=== PATIENT | male | born 1950 | race Two or more races ===

== ENCOUNTER 2016-08-02 18:41 | Emergency (ER) | payer MEDICARE, MEDICAID ==
[~2016-08-02] VITALS: Ht 167.6 cm; Wt 71.7 kg
[~2016-08-02 18:41] MED LIST: ACYC800T PO; ALBU8.5H4 IH; ATAZ300C PO; ATOM40CA PO; ATOR10TA PO; CLOP75TA2 PO; DUTA0.5C2 PO; EMTR1TAB12 PO; GABA-536 PO; HYDR-3326 PO; IBUP-1955 PO; ISOS30TA7 PO; LOPE1LIQ89 PO; LORA2TAB95 PO; METH-406 PO; METO25TA6 PO; MONT10TA22 PO; NITR0.4T SL; RANO500T3 PO; RITO100C2 PO; SULF1TAB44 PO; TAMS0.4C34 PO; TEST200V3 IM
[2016-08-02] MEDS ORDERED: PROPOFOL 200 MG/20 ML VIAL IV ONE ×2 (21:00→21:30)
[2016-08-02] MEDS ORDERED: KETAMINE HCL (500MG/10ML) 50 MG/ML VIAL IV ONE (21:00)
[2016-08-02] MEDS ORDERED: PROPOFOL 20 ML IV ONE (21:01)
[2016-08-02] MEDS ORDERED: KETAMINE HCL (500MG/10ML) 50 MG/ML VIAL ONE (21:01)
[2016-08-02] MEDS ORDERED: IV SET PRIMARY 1 EA INFUS.SET MC ONE (21:11)
[2016-08-02] MEDS ORDERED: IV NS 0.9% 1,000 ML ONE (21:11)
[2016-08-02] MEDS ORDERED: DILTIAZEM HCL 25 MG IV ONE (21:53)
[2016-08-02] MEDS ORDERED: DILTIAZEM HCL 25 MG IV IV ONE (22:00)
[2016-08-02] MEDS ORDERED: IV NS 0.9% 500 ML BAG IV ONE (22:00)
[2016-08-05 14:01] VITALS: BP 150/94
== END 2016-08-02 22:34 | disposition home or self-care (01) ==
LOC: ER 18:46
DX: S43.005A Unspecified dislocation of left shoulder joint, initial encounter (principal); Z59.0 Homelessness; R40.4 Transient alteration of awareness; X58.XXXA Exposure to other specified factors, initial encounter; Y93.89 Activity, other specified; Y92.89 Other specified places as the place of occurrence of the external cause; Y99.8 Other external cause status
CPT/HCPCS: 36415; 70450-TC; 73020; 73030-TC; A4606; J2704; J3490; J7030; Z7610

== ENCOUNTER 2016-08-03 12:44 | Emergency (ER) | payer MEDICARE, MEDICAID ==
[~2016-08-03] VITALS: Ht 170.2 cm; Wt 65.8 kg
[2016-08-03 12:50] VITALS: BP 127/85
== END 2016-08-03 13:26 | disposition left against medical advice (07) ==
LOC: ER 12:45
DX: Z53.21 Procedure and treatment not carried out due to patient leaving prior to being seen by health care provider (principal)
CPT/HCPCS: A4606; Z7610

== ENCOUNTER 2016-11-08 15:46 | Emergency (ER) | payer MEDICARE, OTHER ==
[~2016-11-08] VITALS: Ht 167.6 cm; Wt 68.0 kg
[2016-11-08 16:08] VITALS: BP 132/69
[2016-11-08] MEDS ORDERED: IBUPROFEN 400 MG TABLET PO ONE (16:30)
[2016-11-08] MEDS ORDERED: IBUPROFEN 400 MG TABLET ONE (16:37)
== END 2016-11-08 16:46 | disposition home or self-care (01) ==
LOC: ER 15:47
DX: M25.511 Pain in right shoulder (principal); M25.512 Pain in left shoulder; G89.29 Other chronic pain; G47.419 Narcolepsy without cataplexy; B19.20 Unspecified viral hepatitis C without hepatic coma; Z88.8 Allergy status to other drugs, medicaments and biological substances
CPT/HCPCS: A4606; Z7610

== ENCOUNTER 2016-11-15 12:40 | Emergency (ER) | payer MEDICARE, OTHER ==
[~2016-11-15] VITALS: Ht 167.6 cm; Wt 68.0 kg
[2016-11-15 12:41] VITALS: BP 149/98
[2016-11-15] MEDS ORDERED: ACETAMINOPHEN ES 500 MG TABLET PO ONE (13:30)
[2016-11-15] MEDS ORDERED: ACETAMINOPHEN ES 500 MG TABLET ONE (13:56)
== END 2016-11-15 14:24 | disposition home or self-care (01) ==
LOC: ER 12:42
DX: M54.5 Low back pain (principal); G89.29 Other chronic pain; Z76.5 Malingerer [conscious simulation]; G47.419 Narcolepsy without cataplexy; B19.20 Unspecified viral hepatitis C without hepatic coma; F17.200 Nicotine dependence, unspecified, uncomplicated; Z88.8 Allergy status to other drugs, medicaments and biological substances
CPT/HCPCS: A4606; Z7610

== ENCOUNTER 2016-11-30 14:48 | Emergency (ER) | payer MEDICARE, OTHER ==
[~2016-11-30] VITALS: Ht 167.6 cm; Wt 68.0 kg
[2016-11-30 15:02] VITALS: BP 125/80
== END 2016-11-30 15:13 | disposition home or self-care (01) ==
LOC: ER 14:51
DX: M25.521 Pain in right elbow (principal); Z76.5 Malingerer [conscious simulation]; Z59.0 Homelessness; B19.20 Unspecified viral hepatitis C without hepatic coma; G89.29 Other chronic pain; M54.9 Dorsalgia, unspecified; G47.419 Narcolepsy without cataplexy; Z88.8 Allergy status to other drugs, medicaments and biological substances; F17.200 Nicotine dependence, unspecified, uncomplicated; F10.10 Alcohol abuse, uncomplicated
CPT/HCPCS: 99281; A4606; Z7502; Z7610

== ENCOUNTER 2017-01-06 20:35 | Emergency (ER) | payer MEDICARE, OTHER ==
[~2017-01-06] VITALS: Ht 167.6 cm; Wt 68.0 kg
--- NOTE | 2017-01-06 20:45 | NUR ---
PT BIB SELF C/O COUGH WITH "GREENISH" SPUTUM AND "SHORTNESS OF BREATH ON AND OFF TODAY". RESP APPEARS EVEN UNLABORED. VSS ON ROOM AIR. SKIN WARM NONDIAPHORETIC. AMBULATORY WITH STEADY GAIT. NAD NOTED. IN ER BED 15.
[2017-01-06] MEDS ORDERED: ALBUTEROL FS 2.5 MG/3 ML VIAL.NEB NEB ONE (21:00)
[2017-01-06] MEDS ORDERED: ALBUTEROL SULFATE 8 GM HFA.AER.AD IH ONE (21:00)
[2017-01-06] MEDS ORDERED: ALBUTEROL FS 2.5 MG/3 ML VIAL.NEB ONE (21:12)
--- NOTE | 2017-01-06 21:51 | NUR ---
Patient discharged to home in stable condition. Written and verbal after care instructions given. Patient verbalizes understanding of instruction. AMBULATORY WITH STEADY GAIT. NAD NOTED.
[2017-01-06 21:52] VITALS: BP 125/77
== END 2017-01-06 21:54 | disposition home or self-care (01) ==
LOC: ER 20:40
DX: J45.909 Unspecified asthma, uncomplicated (principal); F32.9 Major depressive disorder, single episode, unspecified; B19.20 Unspecified viral hepatitis C without hepatic coma; G47.419 Narcolepsy without cataplexy; I10 Essential (primary) hypertension; Z88.8 Allergy status to other drugs, medicaments and biological substances; Z59.0 Homelessness
CPT/HCPCS: A4606; Z7610

== ENCOUNTER 2017-08-24 04:14 | Inpatient (IN) | payer MEDICARE ==
[~2017-08-24] VITALS: Ht 172.7 cm; Wt 86.2 kg
[~2017-08-24 04:14] MED LIST changes: +CLOP75TA15 PO; -CLOP75TA2 PO; -HYDR-3326 PO; +HYDR-3974 PO; +LOPE1LIQ PO; -LOPE1LIQ89 PO
[2017-08-24] MEDS ORDERED: IV NS 0.9% 1,000 ML BAG IV ONE ×2 (05:00→07:30)
[2017-08-24] MEDS ORDERED: ONDANSETRON HCL/PF 4 MG/2 ML VIAL IVP ONE (05:00)
[2017-08-24] MEDS ORDERED: ONDANSETRON HCL/PF 4 MG/2 ML VIAL ONE (05:09)
[2017-08-24 05:51] LABS: HEMATOCRIT 38 % (39-51); HEMOGLOBIN 12.8 g/dL (13.5-17.5); MEAN CORPUSCULAR HEMOGLOBIN 29 PG (26.0-33.0); MEAN CORPUSCULAR HGB CONC 34 g/dl (31.0-36.0); MEAN CORPUSCULAR VOLUME 87 fL (80-96); PLATELET COUNT (AUTO) 104 /CMM (150-450); RDW COEFFICIENT OF VARIATION 15.6 (11.5-15.0); RED BLOOD CELL COUNT(AUTO) 4.37 MIL/uL (4.5-6.0); WHITE BLOOD COUNT (AUTO) 8.1 K/uL (4.3-11.0)
[2017-08-24 06:01] LABS: CALCIUM, SERUM 8.5 mg/dL (8.5-10.1); CARBON DIOXIDE 23 mmol/L (21-32); CHLORIDE 107 mmol/L (98-107); CREATININE 0.7 mg/dL (0.6-1.3); GLUCOSE 78 mg/dL (74-106); POTASSIUM 5.2 mmol/L (3.5-5.1); SODIUM SERUM 141 mmol/L (136-145); UREA NITROGEN, BLOOD 34 mg/dL (7-18)
[2017-08-24 06:16] LABS: ALANINE AMINOTRANSFERASE 106 U/L (12-78); ALBUMIN 3.3 g/dL (3.4-5.0); ALCOHOL, BLOOD < 3 mg/dL (0-0); ALKALINE PHOSPHATASE 108 U/L (46-116); ASPARTATE AMINOTRANSFERASE 200 U/L (15-37); BILIRUBIN,DIRECT 0.1 mg/dL (0.0-0.2); BILIRUBIN,TOTAL 0.9 mg/dL (0.2-1.0); SALICYLATE 3.1 mg/dL (2.8-20.0); TOTAL PROTEIN, SERUM 7.8 g/dL (6.4-8.2)
[2017-08-24 06:17] LABS: ACETAMINOPHEN 0 ug/ml (10-30); THYROID STIMULATING HORMONE 1.692 uIU/mL (0.358-3.74)
[2017-08-24] MEDS ORDERED: NALOXONE HCL 0.4 MG/ML AMPUL ONE (08:39)
[2017-08-24] MEDS ORDERED: NALOXONE HCL 0.4 MG/ML AMPUL IV ONE (09:00)
[2017-08-24 09:24] VITALS: BP 134/85
[2017-08-24 09:30] VITALS: BP 134/85
[2017-08-24] MEDS ORDERED: FAMO20TA8 PO (09:33)
[2017-08-24] MEDS ORDERED: ATOM60CA PO (09:33)
[2017-08-24] MEDS ORDERED: EMTR1TAB12 PO (09:33)
[2017-08-24] MEDS ORDERED: VENL75TA4 PO (09:33)
[2017-08-24] MEDS ORDERED: LORA1TAB PO (09:33)
[2017-08-24 10:47] LABS: LYMPHOCYTES % (MANUAL) 28 % (16-48); MONOCYTES % (MANUAL) 2 % (0-11.0); NEUTROPHILS % (MANUAL) 70 (42-76)
[2017-08-24] MEDS ORDERED: LORAZEPAM INJ 2 MG/ML VIAL IV PRN (11:00)
[2017-08-24 12:00] VITALS: BP_SYST 120; BP_DIAS 71; BP_DIAS 85
[2017-08-24] MEDS: FOLIC ACID 1 MG TABLET PO SCH (12:21)
[2017-08-24] MEDS: THIAMINE HCL 100 MG TABLET PO SCH (12:21)
[2017-08-24 16:00] VITALS: BP 127/78
[2017-08-24] MEDS ORDERED: LORAZEPAM 1 MG TABLET PO PRN (18:00)
[2017-08-24] MEDS: ACYCLOVIR 800 MG TABLET PO SCH (19:04)
[2017-08-24] MEDS: RITONAVIR 100 MG CAPSULE PO SCH (19:04)
[2017-08-24] MEDS: ATAZANAVIR SULFATE 300 MG CAPSULE PO SCH (19:05)
[2017-08-24 20:00] VITALS: BP 121/66
[2017-08-24] MEDS ORDERED: ACETAMINOPHEN 325 MG TABLET PO ONE (21:30)
[2017-08-24] MEDS ORDERED: LIDOCAINE 5% (PATCH) 1 EA PATCH TP SCH (21:30)
[2017-08-25 08:00] VITALS: BP 119/68
[2017-08-25] MEDS ORDERED: CLOPIDOGREL BISULFATE 75 MG TABLET PO SCH (09:00)
[2017-08-25] MEDS ORDERED: ISOSORBIDE MONONITRATE (30MG) 30 MG TAB.SR.24H PO SCH (09:00)
[2017-08-25] MEDS: FOLIC ACID 1 MG TABLET PO SCH (09:00)
[2017-08-25] MEDS: THIAMINE HCL 100 MG TABLET PO SCH (09:00)
[2017-08-25] MEDS: ACYCLOVIR 800 MG TABLET PO SCH (09:00)
[2017-08-25] MEDS ORDERED: FAMOTIDINE (20 MG) 20 MG TABLET PO SCH (09:00)
[2017-08-25] MEDS: RITONAVIR 100 MG CAPSULE PO SCH (09:00)
[2017-08-25] MEDS: ATAZANAVIR SULFATE 300 MG CAPSULE PO SCH (09:00)
[2017-08-25] MEDS ORDERED: ATOMOXETINE HCL 60 MG PO SCH (09:00)
[2017-08-25] MEDS ORDERED: VENLAFAXINE XR 75 MG CAP.SR.24H PO SCH (09:00)
[2017-08-25] MEDS ORDERED: EMTRICITABINE/TENOFOVIR 1 TAB PO SCH ×2 (09:00)
== END 2017-08-25 10:00 | disposition home or self-care (01) | DRG 896 ==
LOC: ER 04:15 → TELE 09:06 → MED 08-25 09:28
PROVIDERS: ADMIT Internal Medicine; ATTEND Internal Medicine
DX: F10.229 Alcohol dependence with intoxication, unspecified (principal); G92 Toxic encephalopathy; E86.0 Dehydration; I10 Essential (primary) hypertension; J45.909 Unspecified asthma, uncomplicated; Z59.0 Homelessness; Z82.49 Family history of ischemic heart disease and other diseases of the circulatory system; Z79.899 Other long term (current) drug therapy; G47.419 Narcolepsy without cataplexy; G89.29 Other chronic pain; F41.9 Anxiety disorder, unspecified; F32.9 Major depressive disorder, single episode, unspecified; Z76.5 Malingerer [conscious simulation]; Z88.8 Allergy status to other drugs, medicaments and biological substances; I70.0 Atherosclerosis of aorta; M51.36 Other intervertebral disc degeneration, lumbar region; F17.200 Nicotine dependence, unspecified, uncomplicated
CPT/HCPCS: 36415; 70450-TC; 71045-TC; 72125-TC; 72131-TC; 80048-TC; 80076-TC; 80305; 84443-TC; 85025-TC; 87081-TC; A4606; G0480; J2310; J2405; J7030; L0172; Z7610

== ENCOUNTER 2017-09-06 19:17 | Emergency (ER) | payer MEDICARE ==
[~2017-09-06] VITALS: Ht 175.3 cm; Wt 76.2 kg
[~2017-09-06 19:17] MED LIST changes: -ALBU8.5H4 IH; -ATOM40CA PO; +ATOM60CA PO; -DUTA0.5C2 PO; +FAMO20TA8 PO; -GABA-536 PO; -IBUP-1955 PO; -LOPE1LIQ PO; +LORA1TAB PO; -LORA2TAB95 PO; -METH-406 PO; -METO25TA6 PO; -MONT10TA22 PO; -NITR0.4T SL; -RANO500T3 PO; -SULF1TAB44 PO; -TAMS0.4C34 PO; -TEST200V3 IM; +VENL75TA4 PO
--- NOTE | 2017-09-06 19:20 | NUR ---
67 yo male bb ra from [facility] c/o chest pain. patient assisted to er bed, skin warm and dry, resp even and unlabored. awaiting orders from provider, will continue to monitor
--- NOTE | 2017-09-06 19:59 | NUR ---
target aircraft technician at bed side for chest x ray
[2017-09-06 20:02] LABS: CALCIUM, SERUM 7.9 mg/dL (8.5-10.1); CREATININE 0.7 mg/dL (0.6-1.3); POTASSIUM 3.2 mmol/L (3.5-5.1)
[2017-09-06 20:05] LABS: INR 1.04 (0.85-1.15)
[2017-09-06 20:10] LABS: TROPONIN I 0.02 ng/mL (0.00-0.056)
[2017-09-06 20:50] LABS: HEMATOCRIT 32 % (39-51); HEMOGLOBIN 10.7 g/dL (13.5-17.5); MEAN CORPUSCULAR HEMOGLOBIN 29 PG (26.0-33.0); MEAN CORPUSCULAR HGB CONC 34 g/dl (31.0-36.0); MEAN CORPUSCULAR VOLUME 86 fL (80-96); PLATELET COUNT (AUTO) 194 /CMM (150-450); RDW COEFFICIENT OF VARIATION 17.3 (11.5-15.0); RED BLOOD CELL COUNT(AUTO) 3.65 MIL/uL (4.5-6.0); WHITE BLOOD COUNT (AUTO) 5.3 K/uL (4.3-11.0)
[2017-09-06 21:00] VITALS: BP 131/78
--- NOTE | 2017-09-06 21:00 | NUR ---
Patient discharged to home in stable condition. Written and verbal after care instructions given. Patient verbalizes understanding of instruction. pt ambulatory with a steady gait VITAL SIGNS WITHIN NORMAL LIMITS.
[2017-09-06 21:16] LABS: LYMPHOCYTES % (MANUAL) 19 % (16-48); MONOCYTES % (MANUAL) 11 % (0-11.0); NEUTROPHILS % (MANUAL) 70 (42-76)
== END 2017-09-06 21:01 | disposition home or self-care (01) ==
LOC: ER 19:19
DX: R07.9 Chest pain, unspecified (principal); B19.20 Unspecified viral hepatitis C without hepatic coma; G47.419 Narcolepsy without cataplexy; I10 Essential (primary) hypertension; F17.200 Nicotine dependence, unspecified, uncomplicated; G89.29 Other chronic pain; F10.10 Alcohol abuse, uncomplicated; Z88.8 Allergy status to other drugs, medicaments and biological substances
CPT/HCPCS: 36415; 71045-TC; 80048-TC; 84484-TC; 85025-TC; 85730-TC; A4606; Z7610

== ENCOUNTER 2017-09-18 21:26 | Inpatient (IN) | payer MEDICARE ==
[~2017-09-18] VITALS: Ht 170.2 cm; Wt 72.6 kg
[2017-09-18] MEDS ORDERED: ASPIRIN 81 MG TAB.CHEW PO ONE (21:30)
--- NOTE | 2017-09-18 21:30 | NUR ---
67 YO MALE BB RA FROM [facility] C/O CP 03/21, SUBSTERNAL NON RADIAITNG X 1 DAY. PATIENT AMBULATED TO ER BED, SKIN WARM AND DRY, RESP EVEN AND UNLABORED. 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 AWAITING ORDERS FROM PROVIDER, WILL CONTINUE TO MONITOR
[2017-09-18] MEDS ORDERED: ASPIRIN 81 MG TAB.CHEW ONE (21:43)
--- NOTE | 2017-09-18 22:34 | NUR ---
PATIENT RESTING IN ER BED
[2017-09-18] MEDS ORDERED: HYDROCODONE/APAP 10/325MG 1 EA TABLET ONE (22:54)
[2017-09-18] MEDS ORDERED: LEVOFLOXACIN 750 MG /D5W 150ML 150 ML IV ONE (22:54)
[2017-09-18] MEDS ORDERED: HYDROCODONE/APAP 10/325MG 1 EA TABLET PO ONE (23:00)
[2017-09-18] MEDS ORDERED: LEVOFLOXACIN 750 MG /D5W 150ML 750 MG in PREMIX 1 EA IV SCH (23:00)
[2017-09-18 23:05] LABS: EOSINOPHILS # (AUTO) 0.1 /CMM (0.0-0.7); EOSINOPHILS % (AUTO) 1.5 % (0.0-6.0); HEMATOCRIT 37 % (39-51); HEMOGLOBIN 11.8 g/dL (13.5-17.5); LYMPHOCYTES # (AUTO) 2.3 /CMM (0.8-4.8); LYMPHOCYTES % (AUTO) 25.7 % (20.0-44.0); MEAN CORPUSCULAR HEMOGLOBIN 28 PG (26.0-33.0); MEAN CORPUSCULAR HGB CONC 32 g/dl (31.0-36.0); MEAN CORPUSCULAR VOLUME 87 fL (80-96); MONOCYTES # (AUTO) 0.8 /CMM (0.1-1.30); MONOCYTES % (AUTO) 9.6 % (2.0-12.0); NEUTROPHILS # (AUTO) 5.6 /CMM (1.8-8.9); NEUTROPHILS % (AUTO) 63.2 % (43.0-81.0); PLATELET COUNT (AUTO) 253 /CMM (150-450); RDW COEFFICIENT OF VARIATION 19.5 (11.5-15.0); RED BLOOD CELL COUNT(AUTO) 4.28 MIL/uL (4.5-6.0); WHITE BLOOD COUNT (AUTO) 8.8 K/uL (4.3-11.0)
[2017-09-18 23:16] LABS: INR 1.06 (0.87-1.13)
--- NOTE | 2017-09-18 23:29 | NUR ---
SARAI LUGO TOOK REPORT FOR KAVITHA
[2017-09-19] MEDS ORDERED: ONDANSETRON HCL/PF 4 MG/2 ML VIAL IVP PRN (00:30)
[2017-09-19] MEDS ORDERED: Z GUARD REMEDY 2 OZ OINT TP PRN (00:30)
[2017-09-19] MEDS ORDERED: MAGNESIUM HYDROXIDE 30 ML UDC PO PRN (00:30)
[2017-09-19] MEDS ORDERED: MAG HYDROX/AL HYDROX/SIMETH 30 ML UDC PO PRN (00:30)
[2017-09-19] MEDS ORDERED: methylPREDNISolone SOD SUCC 125 MG/2ML VIAL IV ONE ×2 (00:30→04:00)
[2017-09-19 00:39] LABS: CALCIUM, SERUM 7.9 mg/dL (8.5-10.1); CARBON DIOXIDE 21 mmol/L (21-32); CHLORIDE 103 mmol/L (98-107); CREATININE 0.8 mg/dL (0.6-1.3); GLUCOSE 121 mg/dL (74-106); POTASSIUM 4.6 mmol/L (3.5-5.1); SODIUM SERUM 135 mmol/L (136-145); UREA NITROGEN, BLOOD 33 mg/dL (7-18)
[2017-09-19 00:43] LABS: TROPONIN I < 0.017 ng/mL (0.00-0.056)
[2017-09-19 00:44] LABS: ALANINE AMINOTRANSFERASE 51 U/L (12-78); ALBUMIN 2.3 g/dL (3.4-5.0); ALKALINE PHOSPHATASE 93 U/L (46-116); ASPARTATE AMINOTRANSFERASE 29 U/L (15-37); BILIRUBIN,DIRECT 0.1 mg/dL (0.0-0.2); BILIRUBIN,TOTAL 0.3 mg/dL (0.2-1.0); TOTAL PROTEIN, SERUM 6.5 g/dL (6.4-8.2)
[2017-09-19 01:00] VITALS: BP 117/73
--- NOTE | 2017-09-19 01:00 | NUR ---
MS/RN NOTES RECEIVED PATIENT FROM ER, ARRIVED ON A W/C, ABLE TO TRANSFER SELF TO BED, AMBULATORY, ADMITED WITH DX OF PNA IN CHEST XRAY FINDING, HOMELESS, WITH HEP C, HIV,CHRONIC BACK PAIN,HX OF STENT, DEPPRESSION, HTN. OBSERVED STOOL SOFT, USES URINAL. BELONGINGS CHECK, PROVIDED ROOM ORIENTATION PROVIDED. PHOTO OF WOUND , LEFT KNEE, RIGHT KNEE AND LEFT BUTTOCKS,WOUND CONSULT TO ORDER.WILL MONITOR, PROVIDE FLUIDS AND SNACKS, DIET REGULAR., CALL LIGHTS WITHIN REACH, NON SKID SOCKS PROVIDED.
[2017-09-19 01:30] VITALS: BP 117/73
[2017-09-19 01:32] VITALS: BP 117/73
--- NOTE | 2017-09-19 04:03 | NUR ---
MS/RN NOTES PHARMACY WAS CONTACTED REGARDING ORDER OF SOLUMEDROL, ASSISTED FOR AVAILABILITY AT 0345, SUPPOSEDLY GIVEN BY 0035 ONCE BUT PATIETN ARRIVED AT 0100. MEDICATION.
[2017-09-19] MEDS: HYDROCODONE/APAP 5/325MG 1 EACH TABLET PO PRN ×4 (05:15→19:45)
--- NOTE | 2017-09-19 06:33 | NUR ---
MS/RN CLOSING NOTES PATIENT IN BED, HOB ELEVATED, ABLE TO VERBALIZE NEEDS, PAIN MEDICATION GIVEN IN AM REPORTED PAIN IN SPINE, ALERT, ORIENTED X3,SKIN WARM TO TOUCH, BED IN LOCK POSITON, CALL LIGHTS WITHIN REACH. OFFERED FLUIDS. BATHROOM PRIVELEGE. WILL ENDORSE TO AM RN FOR KAVITHA.
--- NOTE | 2017-09-19 07:32 | NUR ---
MS RN OPENING NOTES RECEIVED PATIENT IN STABLE CONDITION. IN NO APPARENT DISTRESS. BEDSIDE RAILS ARE UPX2. BED IS LOCKED AND LOWERED. CALL LIGHT IS WITHIN REACH. IV LINE IS INTACT AND PATENT. WILL CONTINUE TO MONITOR.
[2017-09-19 08:00] VITALS: BP 144/87
[2017-09-19] MEDS: methylPREDNISolone SOD SUCC 125 MG/2ML VIAL IV SCH ×4 (09:19→21:19)
[2017-09-19] MEDS: ALBUTEROL FS 2.5 MG/0.5 ML VIAL.NEB NEB PRN ×2 (13:23→22:34)
[2017-09-19] MEDS: NICOTINE PATCH (14MG) 14 MG PATCH.TD24 TD SCH (15:22)
[2017-09-19 16:00] VITALS: BP 155/78
--- NOTE | 2017-09-19 18:30 | NUR ---
MS RN CLOSING NOTES PATIENT IS ALERT AND ORIENTED X4. BED IS LOCKED AND LOWERED. CALL LIGHT IS WITHIN REACH. IV LINE IS PATENT AND INTACT. BEDSIDE RAILS ARE UPX2. WILL ENDORSE CARE TO STORE LOSS PREVENTION MANAGER NURSE FOR KAVITHA.
--- NOTE | 2017-09-19 19:30 | NUR ---
MS RN NOTE RECEIVED PATIENT AWAKE AND ALERT IN BED. VERY PLEASANT. ABLE TO MAKE NEEDS KNOWN. DENIES ANY PAIN AT THIS TIME. IV SITE INTACT, WITH NO REDNESS OR INFILTRATION NOTED. BED LOCKED AND IN LOWEST POSITION. SIDE RAILS UP, CALL LIGHT WITHIN REACH. WILL CONTINUE TO MONITOR.
[2017-09-19] MEDS: ZOLPIDEM TARTRATE 5 MG TABLET PO PRN (21:19)
[2017-09-19 22:00] VITALS: BP 155/78
[2017-09-19] MEDS: LORAZEPAM 1 MG TABLET PO PRN (23:31)
[2017-09-20] MEDS: LEVOFLOXACIN 500 MG /D5W 100ML 500 MG in PREMIX 1 EA IV SCH (01:59)
[2017-09-20] MEDS: HYDROCODONE/APAP 5/325MG 1 EACH TABLET PO PRN ×4 (01:59→18:38)
--- NOTE | 2017-09-20 06:28 | NUR ---
MS RN NOTE ALL NEEDS MET AND ATTENDED TO. WILL ENDORSE TO DAY SHIFT FOR KAVITHA.
[2017-09-20 06:35] LABS: HEMATOCRIT 31 % (39-51); HEMOGLOBIN 10.2 g/dL (13.5-17.5); MEAN CORPUSCULAR HEMOGLOBIN 28 PG (26.0-33.0); MEAN CORPUSCULAR HGB CONC 33 g/dl (31.0-36.0); MEAN CORPUSCULAR VOLUME 86 fL (80-96); PLATELET COUNT (AUTO) 252 /CMM (150-450); RDW COEFFICIENT OF VARIATION 18.4 (11.5-15.0)
[2017-09-20 06:36] LABS: CALCIUM, SERUM 8.2 mg/dL (8.5-10.1); CREATININE 0.6 mg/dL (0.6-1.3); MAGNESIUM 2.3 mg/dL (1.8-2.4); PHOSPHORUS 3.5 mg/dL (2.5-4.9); POTASSIUM 4.5 mmol/L (3.5-5.1)
[2017-09-20 07:27] LABS: WHITE BLOOD COUNT (AUTO) 9.9 K/uL (4.3-11.0)
[2017-09-20 07:28] LABS: RED BLOOD CELL COUNT(AUTO) 3.58 MIL/uL (4.5-6.0)
--- NOTE | 2017-09-20 07:30 | NUR ---
PT RECEIVED RESTING COMFORTABLY IN BED. NO S/S OR C/O PAIN OR DISTRESS NOTED. SIDE RAILS UP X2. CALL LIGHT LEFT WITHIN REACH. WILL CONTINUE PLAN OF CARE.
[2017-09-20 08:00] VITALS: BP 132/76
[2017-09-20] MEDS: NICOTINE PATCH (14MG) 14 MG PATCH.TD24 TD SCH (08:16)
[2017-09-20 10:05] LABS: BAND % (MANUAL) 3 % (0.0-5.0); LYMPHOCYTES % (MANUAL) 5 % (16-48); MONOCYTES % (MANUAL) 2 % (0-11.0); NEUTROPHILS % (MANUAL) 90 (42-76)
[2017-09-20] MEDS ORDERED: SULF1TAB48 PO (10:40)
[2017-09-20] MEDS ORDERED: DUTA0.5C PO (10:40)
[2017-09-20] MEDS ORDERED: ASPI-1169 PO (10:40)
[2017-09-20] MEDS ORDERED: METH-406 PO (10:40)
[2017-09-20] MEDS ORDERED: LOPE2CAP40 PO (10:40)
[2017-09-20] MEDS ORDERED: GABA400C PO (10:40)
[2017-09-20] MEDS ORDERED: METO-356 PO (10:40)
[2017-09-20] MEDS ORDERED: TEST200V3 IM (10:40)
[2017-09-20] MEDS: LORAZEPAM 1 MG TABLET PO PRN ×2 (10:43→17:08)
[2017-09-20] MEDS ORDERED: ACAM333T8 PO (10:49)
[2017-09-20] MEDS: methylPREDNISolone SOD SUCC 125 MG/2ML VIAL IV SCH ×4 (11:38→21:31)
[2017-09-20] MEDS ORDERED: EMTRICITABINE/TENOFOVIR 1 TAB PO SCH (14:30)
[2017-09-20] MEDS: ALBUTEROL FS 2.5 MG/0.5 ML VIAL.NEB NEB PRN ×2 (14:41→20:00)
--- NOTE | 2017-09-20 15:46 | NUR ---
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 Fitzpatrick in regards to homelessness. Pt is a 67 year old male who was admitted to [facility] for shortness of breath, wheezing and cough with green sputum worsening over the past week. Pt was alert and oriented x4. Pt has been residing at [facility] ([address] [place] [address]) prior to hospitalization. The pt.s emergency contact is the pt.s friend Fer Pacheco ([phone]). Patient denies use of drugs and cigarettes. Pt reports that he stopped drinking a week ago, but would have 1/6th of a vodka bottle a day. Pt states that he has been in treatment before at [facility] for alcohol abuse but cant remember exactly when. Pt reports that he wants outpatient referrals for substance abuse. Pt reports having a psychiatric disorder (Depression) and seeing a psychiatrist (Dr. Galindo Garcia-[address], [place] [address]; ). Pt reports that he has been hospitalized at [facility] for a month. Pt denies any current suicidal or homicidal ideation. Pt denies any auditory and visual hallucinations. SW provided pt. with Substance Abuse Referrals to [facility] ([address], [place] [address]; [phone]), [facility] ([address], [place] [address]; ), and [facility] ( [place] [address]; ). Pt reported that he wanted to be placed in a [facility] Facility. SW spoke to Case Management in regards to finding a SNF placement for pt. SW spoke with BRITTNEY Navarro to inform him of resources provided and need for a SNF. Plan: Case Management will find appropriate SNF for pt. before discharge.
[2017-09-20 16:00] VITALS: BP 130/85
[2017-09-20] MEDS: EMTRICITABINE/TENOFOVIR 1 TAB PO SCH (16:44)
[2017-09-20] MEDS: DUTASTERIDE (0.5 MG) 0.5 MG CAPSULE PO SCH (16:44)
[2017-09-20] MEDS: SULFAMETH/TRIMETH 800/160 MG 1 UDTAB TABLET PO SCH (16:44)
[2017-09-20] MEDS: ACYCLOVIR 800 MG TABLET PO SCH (16:44)
[2017-09-20] MEDS: GABAPENTIN 400 MG CAPSULE PO SCH ×2 (16:45→17:00)
[2017-09-20] MEDS: CLOPIDOGREL BISULFATE 75 MG TABLET PO SCH (16:45)
[2017-09-20] MEDS: ATORVASTATIN 10 MG TABLET PO SCH (16:45)
[2017-09-20] MEDS: METOPROLOL SUCCINATE 25 MG TAB.SR.24H PO SCH (16:45)
[2017-09-20] MEDS: ASPIRIN 81 MG TAB.CHEW PO SCH (16:45)
[2017-09-20] MEDS: FAMOTIDINE (20 MG) 20 MG TABLET PO SCH ×2 (16:45→17:00)
[2017-09-20] MEDS: METHOCARBAMOL (750MG) 750 MG TABLET PO SCH ×3 (16:46→21:31)
[2017-09-20] MEDS: ISOSORBIDE MONONITRATE (30MG) 30 MG TAB.SR.24H PO SCH (16:46)
[2017-09-20] MEDS: RITONAVIR 100 MG CAPSULE PO SCH (17:08)
[2017-09-20] MEDS: ATAZANAVIR SULFATE 300 MG CAPSULE PO SCH (17:08)
[2017-09-20] MEDS: DAKINS QUARTER STRENGTH (0.125%) 480 ML BOTTLE TOP SCH (17:09)
[2017-09-20] MEDS: NEOMY SULF/BACITRAC ZN/POLY 15 GM TUBE TP SCH (17:10)
--- NOTE | 2017-09-20 17:16 | NUR ---
Spoke with patient, he is alert and very pleasant. Stated prior to admit, he resides at a board and Care in [facility]. Patient forgot the name of the B&C, stated he had paid the September rent. Patient is ambulatory and independent with adl's. His support system are his friends and the [facility] [phone]. Per patient,he is ok with short term SNF for wound care and eventually will go back to his board and care after SNF. Patient was referred to [facility] [phone] by counter caser Anne. Bryce Newsome at [facility]- patient has been accepted. Addendum: 09/20/17 at 1717 by SCOTT ROWLEY RN Amended: Links added.
--- NOTE | 2017-09-20 17:44 | NUR ---
Patient called home health care social worker in regards to filling out [employer] application. ornamental ironworker called and left a message for financial counselor Fatuma ([phone]) in regards to pt's request.
[2017-09-20] MEDS: LOPERAMIDE HCL (2 MG CAP) 2 MG CAPSULE PO PRN (18:32)
--- NOTE | 2017-09-20 18:54 | NUR ---
CHANGE OF SHIFT REPORT PT RESTING COMFORTABLY IN BED. NO S/S OR C/O PAIN OR DISTRESS NOTED. SIDE RAILS UP X2, CALL LIGHT LEFT WITHIN REACH. PT KEPT CLEAN, DRY, AND COMFORTABLE. NO SIGNIFICANT CHANGES SINCE PREVIOUS SHIFT. WILL GIVE REPORT TO VANESSA LUGO.
[2017-09-20 20:00] VITALS: BP 124/84
[2017-09-20] MEDS: ACETAMINOPHEN 325 MG TABLET PO PRN (21:31)
[2017-09-20] MEDS: ZOLPIDEM TARTRATE 5 MG TABLET PO PRN (21:31)
[2017-09-20 22:00] VITALS: BP 124/84
[2017-09-21] MEDS: LEVOFLOXACIN 500 MG /D5W 100ML 500 MG in PREMIX 1 EA IV SCH (01:08)
[2017-09-21] MEDS: ALBUTEROL FS 2.5 MG/0.5 ML VIAL.NEB NEB PRN (01:28)
[2017-09-21] MEDS: HYDROCODONE/APAP 5/325MG 1 EACH TABLET PO PRN ×2 (01:40→21:53)
[2017-09-21] MEDS: LORAZEPAM 1 MG TABLET PO PRN ×3 (01:59→20:37)
[2017-09-21] MEDS ORDERED: ALBUTEROL FS 2.5 MG/0.5 ML VIAL.NEB NEB ONE (06:00)
--- NOTE | 2017-09-21 06:22 | NUR ---
MS RN NOTE PATIENT STABLE. ALL NEEDS MET AND ATTENDED TO. WILL ENDORSE TO DAY SHIFT FOR KAVITHA.
[2017-09-21] MEDS: HYDROCODONE/APAP 5/325MG 1 EACH TABLET PO SCH ×3 (07:54→18:02)
--- NOTE | 2017-09-21 07:59 | NUR ---
WOUND CARE CONSULT WOUND CARE RECEIVED CONSULT FOR WOUND. WOUND CARE WILL DEFER CONSULT AND TREATMENT PLANS TO SURGICAL TEAM WHO ARE CURRENTLY FOLLOWING. PATIENT WITH VINEET AT 19. ALL PRESSURE ULCER PREVENTION MEASURES NOTED TO BE IN PLACE.
[2017-09-21 08:00] VITALS: BP 162/98
[2017-09-21] MEDS: ALBUTEROL FS 2.5 MG/0.5 ML VIAL.NEB NEB SCH ×3 (08:23→19:07)
--- NOTE | 2017-09-21 08:25 | NUR ---
MS RN RECEIVED ON BED, AWAKE,ALERT,ORIENTED X4,NOT IN ANY FORM OF DISTRESS, RESPIRATIONS EVEN AND UNLABORED,NO SOB NOTED, LUNGS ARE CLEAR,ABDOMEN SOFT,POSITIVE BOWEL SOUNDS,DENIES PAIN AT THIS TIME,ALL NEEDS ATTENDED.
[2017-09-21] MEDS: methylPREDNISolone SOD SUCC 125 MG/2ML VIAL IV SCH ×4 (09:34→20:38)
[2017-09-21] MEDS: SULFAMETH/TRIMETH 800/160 MG 1 UDTAB TABLET PO SCH (09:34)
[2017-09-21] MEDS: DUTASTERIDE (0.5 MG) 0.5 MG CAPSULE PO SCH (09:35)
[2017-09-21] MEDS: GABAPENTIN 400 MG CAPSULE PO SCH ×2 (09:35→17:55)
[2017-09-21] MEDS: METHOCARBAMOL (750MG) 750 MG TABLET PO SCH ×4 (09:35→20:36)
[2017-09-21] MEDS: FAMOTIDINE (20 MG) 20 MG TABLET PO SCH ×2 (09:35→17:55)
[2017-09-21] MEDS: ASPIRIN 81 MG TAB.CHEW PO SCH (09:35)
[2017-09-21] MEDS: ISOSORBIDE MONONITRATE (30MG) 30 MG TAB.SR.24H PO SCH (09:36)
[2017-09-21] MEDS: ATORVASTATIN 10 MG TABLET PO SCH (09:36)
[2017-09-21] MEDS: CLOPIDOGREL BISULFATE 75 MG TABLET PO SCH (09:36)
[2017-09-21] MEDS: NICOTINE PATCH (14MG) 14 MG PATCH.TD24 TD SCH (09:36)
[2017-09-21] MEDS: METOPROLOL SUCCINATE 25 MG TAB.SR.24H PO SCH ×2 (09:37→17:56)
[2017-09-21] MEDS: NEOMY SULF/BACITRAC ZN/POLY 15 GM TUBE TP SCH (09:38)
[2017-09-21] MEDS: DAKINS QUARTER STRENGTH (0.125%) 480 ML BOTTLE TOP SCH (09:38)
[2017-09-21] MEDS: LOPERAMIDE HCL (2 MG CAP) 2 MG CAPSULE PO PRN (09:40)
--- NOTE | 2017-09-21 09:45 | NUR ---
MS LUGO BREAKFAST SERVED,DUE MEDS GIVEN,TOLERATED WELL.
--- NOTE | 2017-09-21 14:00 | NUR ---
MS RN ON BED, SLEEPING, NO COMPLAIN NOTED.
[2017-09-21 16:00] VITALS: BP 138/66
--- NOTE | 2017-09-21 16:00 | NUR ---
ms rn refused to redress his buttock wound.
[2017-09-21] MEDS: RITONAVIR 100 MG CAPSULE PO SCH (17:56)
[2017-09-21] MEDS: ATAZANAVIR SULFATE 300 MG CAPSULE PO SCH (17:56)
[2017-09-21] MEDS: ACYCLOVIR 800 MG TABLET PO SCH (17:57)
[2017-09-21] MEDS: EMTRICITABINE/TENOFOVIR 1 TAB PO SCH (17:57)
--- NOTE | 2017-09-21 19:06 | NUR ---
ms rn no change in condition.
--- NOTE | 2017-09-21 19:06 | NUR ---
ms rn no change in condition.
[2017-09-21 20:32] VITALS: BP 133/78
--- NOTE | 2017-09-21 20:40 | NUR ---
MS/RN PATIENT C/O FEELING ANXIOUS, WALKING AROUND THE ROOM, ATIVAN 0.5 MG PO WAS GIVEN ORDERED. WILL MONITOR.
--- NOTE | 2017-09-21 20:57 | NUR ---
MS/RN NOTED TO HAVE NO IV ACCESS AT THIS TIME, INSERTED IV AT RT. RICK Farley 22.
[2017-09-22] MEDS: ALBUTEROL FS 2.5 MG/0.5 ML VIAL.NEB NEB SCH ×3 (00:48→13:38)
[2017-09-22] MEDS: LEVOFLOXACIN 500 MG /D5W 100ML 500 MG in PREMIX 1 EA IV SCH (00:59)
--- NOTE | 2017-09-22 01:11 | NUR ---
MS/RN PATIENT IS SLEEPING AT THIS TIME, AROUSABLE, APPEAR COMFORTABLE, NO SIGNS OF DISTRESS NOTED, CALL LIGHT IN REACH, WILL CONTINUE TO MONITOR.
[2017-09-22] MEDS: HYDROCODONE/APAP 5/325MG 1 EACH TABLET PO PRN ×2 (02:00→05:54)
[2017-09-22] MEDS: ZOLPIDEM TARTRATE 5 MG TABLET PO PRN (02:56)
--- NOTE | 2017-09-22 06:54 | NUR ---
MS/RN PATIENT IS AWAKE AT THIS TIME, COMFORTABLE, NO DISTRESS NOTED, ALL NEEDS ATTENDED AT THIS TIME. WILL CONTINUE TO MONITOR.
[2017-09-22 08:00] VITALS: BP 140/92
--- NOTE | 2017-09-22 08:00 | NUR ---
MS RN RECEIVED ON BED, AWAKE,ALERT,ORIENTED X4,NOT IN ANY FORM OF DISTRESS, RESPIRATIONS EVEN AND UNLABORED, NO SOB NOTED. LUNG HAVE RONCHIS BILATERALLY,NO DISTRESS NOTED.
[2017-09-22] MEDS: LORAZEPAM 1 MG TABLET PO PRN (08:46)
[2017-09-22] MEDS: DUTASTERIDE (0.5 MG) 0.5 MG CAPSULE PO SCH (08:46)
[2017-09-22] MEDS: FAMOTIDINE (20 MG) 20 MG TABLET PO SCH ×2 (08:46→16:42)
[2017-09-22] MEDS: NICOTINE PATCH (14MG) 14 MG PATCH.TD24 TD SCH (08:46)
[2017-09-22] MEDS: GABAPENTIN 400 MG CAPSULE PO SCH ×2 (08:47→16:42)
[2017-09-22] MEDS: SULFAMETH/TRIMETH 800/160 MG 1 UDTAB TABLET PO SCH (08:47)
[2017-09-22] MEDS: CLOPIDOGREL BISULFATE 75 MG TABLET PO SCH (08:47)
[2017-09-22] MEDS: ASPIRIN 81 MG TAB.CHEW PO SCH (08:47)
[2017-09-22] MEDS: ATAZANAVIR SULFATE 300 MG CAPSULE PO SCH (08:47)
[2017-09-22] MEDS: METHOCARBAMOL (750MG) 750 MG TABLET PO SCH ×3 (08:47→16:42)
[2017-09-22] MEDS: RITONAVIR 100 MG CAPSULE PO SCH (08:48)
[2017-09-22] MEDS: methylPREDNISolone SOD SUCC 125 MG/2ML VIAL IV SCH (08:48)
[2017-09-22] MEDS: ACYCLOVIR 800 MG TABLET PO SCH (08:48)
[2017-09-22] MEDS: EMTRICITABINE/TENOFOVIR 1 TAB PO SCH (08:48)
[2017-09-22] MEDS: METOPROLOL SUCCINATE 25 MG TAB.SR.24H PO SCH ×2 (08:49→16:43)
[2017-09-22] MEDS: ISOSORBIDE MONONITRATE (30MG) 30 MG TAB.SR.24H PO SCH (08:49)
[2017-09-22] MEDS: DAKINS QUARTER STRENGTH (0.125%) 480 ML BOTTLE TOP SCH (08:58)
[2017-09-22] MEDS: NEOMY SULF/BACITRAC ZN/POLY 15 GM TUBE TP SCH (08:58)
[2017-09-22] MEDS: ATORVASTATIN 10 MG TABLET PO SCH (08:59)
--- NOTE | 2017-09-22 09:00 | NUR ---
MS LUGO BREAKFAST SERVED,DUE MEDS GIVEN,TOLERATED WELL.
[2017-09-22] MEDS: HYDROCODONE/APAP 5/325MG 1 EACH TABLET PO SCH ×2 (10:32→14:33)
[2017-09-22 10:37] LABS: HEMATOCRIT 33 % (39-51); HEMOGLOBIN 10.7 g/dL (13.5-17.5); MEAN CORPUSCULAR HEMOGLOBIN 28 PG (26.0-33.0); MEAN CORPUSCULAR HGB CONC 32 g/dl (31.0-36.0); MEAN CORPUSCULAR VOLUME 86 fL (80-96); PLATELET COUNT (AUTO) 251 /CMM (150-450); RDW COEFFICIENT OF VARIATION 19.1 (11.5-15.0); RED BLOOD CELL COUNT(AUTO) 3.83 MIL/uL (4.5-6.0); WHITE BLOOD COUNT (AUTO) 10.3 K/uL (4.3-11.0)
[2017-09-22 10:55] LABS: CREATININE 0.7 mg/dL (0.6-1.3); POTASSIUM 4.5 mmol/L (3.5-5.1)
--- NOTE | 2017-09-22 11:30 | NUR ---
MS RN WAS SEEN BY DR. JANINA Luna/ VILLA FOR HIM TO BE DISCHARGE TODAY,ALL NEEDS ATTENDED.
[2017-09-22 12:43] LABS: LYMPHOCYTES % (MANUAL) 7 % (16-48); MONOCYTES % (MANUAL) 6 % (0-11.0); NEUTROPHILS % (MANUAL) 87 (42-76)
[2017-09-22] MEDS: ACETAMINOPHEN 325 MG TABLET PO PRN (12:55)
[2017-09-22] MEDS ORDERED: CLOP75TA15 PO (13:15)
[2017-09-22] MEDS ORDERED: ATOM60CA PO (13:15)
[2017-09-22] MEDS ORDERED: ATOR10TA PO (13:15)
[2017-09-22] MEDS ORDERED: ACYC800T PO (13:15)
[2017-09-22] MEDS ORDERED: ATAZ300C PO (13:15)
[2017-09-22] MEDS ORDERED: SULF1TAB48 PO (13:15)
[2017-09-22] MEDS ORDERED: ASPI-1169 PO (13:15)
[2017-09-22] MEDS ORDERED: EMTR1TAB12 PO (13:15)
[2017-09-22] MEDS ORDERED: METO-356 PO (13:15)
[2017-09-22 16:00] VITALS: BP 153/87
--- NOTE | 2017-09-22 16:00 | NUR ---
MS RN REFUSED TO PUT DRESSING AT BUTTOCKS WOUND.
--- NOTE | 2017-09-22 16:30 | NUR ---
MS RN READY TO GO VIA TAXI VOUCHER, BUT PATIENT REFUSED TO TAKE PICTURES AT XANDER LOWER EXTREMITIES AND BUTTOCKS AREA.
[2017-09-22 16:43] VITALS: BP 135/65
[2017-09-22] MEDS: LOPERAMIDE HCL (2 MG CAP) 2 MG CAPSULE PO PRN (16:43)
--- NOTE | 2017-09-22 17:15 | NUR ---
MS RN PATIENT WENT TO BOARD AND CARE VIA TAXI VOUCHER W/ PRESCRIPTION,ALL NEEDS ATTENDED.
== END 2017-09-22 17:15 | disposition home or self-care (01) | DRG 981 ==
LOC: ER 21:27 → MED 23:23 → TELE 09-19 01:01 → MED 09-19 01:04
PROVIDERS: ADMIT Internal Medicine; ATTEND Internal Medicine
PROC: 0KBP0ZZ Excision of Left Hip Muscle, Open Approach (ICD-10-PCS; principal; 2017-09-20)
DX: J44.1 Chronic obstructive pulmonary disease with (acute) exacerbation (principal); J96.01 Acute respiratory failure with hypoxia; L89.324 Pressure ulcer of left buttock, stage 4; E44.0 Moderate protein-calorie malnutrition; L89.021 Pressure ulcer of left elbow, stage 1; J44.0 Chronic obstructive pulmonary disease with (acute) lower respiratory infection; D63.8 Anemia in other chronic diseases classified elsewhere; F17.210 Nicotine dependence, cigarettes, uncomplicated; F32.9 Major depressive disorder, single episode, unspecified; F41.9 Anxiety disorder, unspecified; I10 Essential (primary) hypertension; I25.10 Atherosclerotic heart disease of native coronary artery without angina pectoris; J20.9 Acute bronchitis, unspecified; Z98.61 Coronary angioplasty status; S80.212A Abrasion, left knee, initial encounter; S80.211A Abrasion, right knee, initial encounter; X58.XXXA Exposure to other specified factors, initial encounter; Y93.9 Activity, unspecified; Y92.89 Other specified places as the place of occurrence of the external cause; Y99.9 Unspecified external cause status; Z68.25 Body mass index [BMI] 25.0-25.9, adult
CPT/HCPCS: 36415; 71045-TC; 80048-TC; 80076-TC; 83735-TC; 83880; 84100-TC; 84484-TC; 85025-TC; 85730-TC; 87040-TC; 87081-TC; A4216; A4606; J1956; J2930; Z7610

== ENCOUNTER 2018-07-30 16:31 | Emergency (ER) | payer MEDICARE, MEDICAID ==
[~2018-07-30] VITALS: Ht 157.5 cm; Wt 59.0 kg
[~2018-07-30 16:31] MED LIST changes: +ACAM333T8 PO; +ASPI-1169 PO; +BUPR-51 PO; -CLOP75TA15 PO; +GABA400C PO; +LOPE2CAP40 PO; +METH5TAB4 PO; +METO25TA20 PO; +RIVA10TA PO; +SULF1TAB48 PO; +TEST200V3 IM; -VENL75TA4 PO
[2018-07-30 16:40] VITALS: BP 144/84
--- NOTE | 2018-07-30 16:40 | NUR ---
PT BIBRA TO ER BED 03. PER EMS REPORT, PT WAS C/O INTERMITTENT CHEST PAIN X 4 DAYS. UPON INITIAL ASSESSMENT, PT STATES PAIN FREE AND DENIES ANY DISCOMFORT CARD FOLDER. PLACED ON MONITOR STABLE VITALS. AWAITING MD STEIN.
--- NOTE | 2018-07-30 16:48 | NUR ---
PT REFUSED BLOOD DRAW. AAOX3, REFUSING TO WAIT FOR ERMD EVALUATION AND DID SIGN AMA FORM KNOWING THE RISK.
--- NOTE | 2018-07-30 16:59 | NUR ---
PT LEFT EMERGENCY ROOM W/ AMA FORM SIGNED. PT STATES HE WILL TAKE THE BUS. AMBULATORY W/ STEADY GAIT.
== END 2018-07-30 17:00 | disposition left against medical advice (07) ==
LOC: ER 16:34
DX: Z53.21 Procedure and treatment not carried out due to patient leaving prior to being seen by health care provider (principal); R07.89 Other chest pain; M79.602 Pain in left arm; I10 Essential (primary) hypertension; I25.2 Old myocardial infarction; I48.91 Unspecified atrial fibrillation; K21.9 Gastro-esophageal reflux disease without esophagitis; F32.9 Major depressive disorder, single episode, unspecified; F41.9 Anxiety disorder, unspecified; G89.29 Other chronic pain; D64.9 Anemia, unspecified; Z87.19 Personal history of other diseases of the digestive system

== ENCOUNTER 2018-08-09 16:42 | Emergency (ER) | payer MEDICARE, MEDICAID ==
[~2018-08-09] VITALS: Ht 167.6 cm; Wt 65.8 kg
[2018-08-09 16:42] VITALS: BP 150/70
[2018-08-09] MEDS ORDERED: ACETAMINOPHEN W/ CODEINE#3 1 EA TABLET PO ONE (19:00)
--- NOTE | 2018-08-09 19:15 | NUR ---
Kwame alva in ED - 08/09/18 at 1940 by RAY PT ELOPED, REFUSED TO SIGN AMA FORM.
--- NOTE | 2018-08-09 19:40 | NUR ---
PT LEFT AMA, MISTY, DEBURR TECHNICIAN AWARE.
== END 2018-08-09 19:42 | disposition left against medical advice (07) ==
LOC: ER 16:42
DX: M25.512 Pain in left shoulder (principal); M25.511 Pain in right shoulder; I10 Essential (primary) hypertension; I25.2 Old myocardial infarction; I48.91 Unspecified atrial fibrillation; J44.9 Chronic obstructive pulmonary disease, unspecified; K21.9 Gastro-esophageal reflux disease without esophagitis; M54.9 Dorsalgia, unspecified; G89.29 Other chronic pain; F17.200 Nicotine dependence, unspecified, uncomplicated; F32.9 Major depressive disorder, single episode, unspecified; F10.10 Alcohol abuse, uncomplicated; F41.9 Anxiety disorder, unspecified; Y90.9 Presence of alcohol in blood, level not specified; Z86.19 Personal history of other infectious and parasitic diseases; Z59.0 Homelessness; Z88.8 Allergy status to other drugs, medicaments and biological substances; Z79.899 Other long term (current) drug therapy; Z79.82 Long term (current) use of aspirin

== ENCOUNTER 2018-12-11 22:38 | Emergency (ER) | payer MEDICARE, MEDICAID ==
[~2018-12-11] VITALS: Ht 167.6 cm; Wt 74.8 kg
--- NOTE | 2018-12-11 22:44 | NUR ---
CALLED IN WR, NO ANSWER.
[2018-12-11 22:56] VITALS: BP 147/91
[2018-12-12] MEDS ORDERED: IBUPROFEN 600 MG TABLET PO ONE (00:39)
[2018-12-12] MEDS: IBUPROFEN 600 MG TABLET PO ONE (00:41)
== END 2018-12-12 01:16 | disposition home or self-care (01) ==
LOC: ER 22:42
DX: M54.9 Dorsalgia, unspecified (principal); G89.29 Other chronic pain; E78.5 Hyperlipidemia, unspecified; G47.419 Narcolepsy without cataplexy; I10 Essential (primary) hypertension; I25.2 Old myocardial infarction; I48.91 Unspecified atrial fibrillation; J44.9 Chronic obstructive pulmonary disease, unspecified; K21.9 Gastro-esophageal reflux disease without esophagitis; F32.9 Major depressive disorder, single episode, unspecified; F41.9 Anxiety disorder, unspecified; F10.10 Alcohol abuse, uncomplicated; F17.200 Nicotine dependence, unspecified, uncomplicated; Z95.5 Presence of coronary angioplasty implant and graft; Z79.82 Long term (current) use of aspirin; Z88.8 Allergy status to other drugs, medicaments and biological substances; Z88.9 Allergy status to unspecified drugs, medicaments and biological substances; Z86.19 Personal history of other infectious and parasitic diseases